=== PATIENT | female | born 1960 | race Caucasian/White ===

== ENCOUNTER 2016-04-27 21:10 | Emergency (ER) | payer OTHER ==
[2016-04-27 22:06] LABS: MANUAL DIFF NEEDED? NO
[2016-04-27 22:13] LABS: BASO% 1.1 % (0.0-0.8); EOS# 0.15 X1000 (0.0-0.7); EOS% 2.7 % (0.0-10.0); HEMATOCRIT 38.3 % (37.0-47.0); HEMOGLOBIN 12.8 g/dL (12.0-16.0); MCH 27.8 PG (27-31); MCHC 33.4 g/dL (33-37); MCV 83.3 FL (81-99); MONO# 0.46 X1000 (0.11-0.59); MONO% 8.2 % (1.7-9.3); PLT 372 X1000 (130-400)
[2016-04-27] MEDS ORDERED: HUMULIN R IV ONE ×2 (22:14→23:13)
[2016-04-27] MEDS ORDERED: NS 1,000 ML IV ONE (22:14)
--- NOTE | 2016-04-27 22:27 | PROVIDER DOCUMENTATION ---
HPI-General Adult - General Source: patient - History of Present Illness -Gen Adult Nature of Presenting Problems: 55 YOWF PRESENTS TO ED WITH C/O PT [facility]. PT STATES THE CLINIC CALLED HER AND TOLD HER TO COME TO ED THAT HER BLOOD SUGAR WAS 534. PT STATES HER LAST MEAL WAS AT [employer] SHE HAD 4 SLICES OF PIZZA AND SOUP WITH A SPRITE. PT STATES SHE HAS NOT TAKEN HER INSULIN TODAY. Location of Pain/Injury: reports: none Pain Radiation: reports: no radiation Quality of Pain: reports: none Severity: reports: moderate Onset/Duration: reports: 4-6 hours ago Timing: reports: still present Context/Activities at Onset: reports: light activity Modifying Factors: improves with: nothing Similar Symptoms Previously?: No Recently seen or treated by another doctor?: No <Pola Bejarano - Last Filed: 04/27/16 23:00> <Jaime Arnold - Last Filed: 04/28/16 00:59> - General Chief Complaint: High Blood Sugar Stated Complaint: HIGH BLOOD SUGAR Time Seen by Provider: 04/27/16 22:12 Allergies/Adverse Reactions: Patient Allergies Allergy/AdvReac Type Severity Reaction Status Date / Time Sulfa (Sulfonamide Allergy Mild RASH Verified 04/27/16 21:49 Antibiotics) sulfamethoxazole Allergy VOMITING Verified 04/27/16 21:49 [From Bactrim] trimethoprim [From Bactrim] Allergy VOMITING Verified 04/27/16 21:49 Home Medications: Home Medication List Medication Instructions Recorded Confirmed Last Taken Type Rosuvastatin Calcium [Crestor] 30 mg PO DAILY 06/23/13 06/22/15 06/08/15 09:00 History Losartan/Hydrochlorothiazide 1 each PO DAILY 09/04/14 06/22/15 06/08/15 09:00 History [Losartan-Hctz 50-12.5 mg Tab] Paroxetine HCl [Paxil] 20 mg PO DAILY 09/04/14 06/22/15 06/08/15 09:00 History Insulin Novolog 70/30 [Novolog Mix 45 unit SUBQ QAM #0 insuln.pen 09/29/1406/2106/08/15 09:00 Rx 70/30] Hydrochlorothiazide 12.5 mg PO DAILY 05/17/15 06/22/15 06/02/15 History Insulin Regular, Human [Humulin R 20 unit SQ TID 05/17/15 06/22/15 06/08/15 09: 00 History U-500] Meloxicam 7.5 mg PO DAILY 05/17/15 06/22/15 06/02/15 History Hydrocodone/Acetaminophen [[place] 1 each PO Q4H PRN PRN #0 tablet 06/07/15 Unknown Rx 5-325 Tablet] Methocarbamol [Robaxin-750] 750 mg PO 3-4XDAY PRN #30 tablet 06/18/15 06/22/15 Unknown Rx Tramadol [Ultram] 50 mg PO Q6H PRN PRN #30 tablet 06/18/15 06/22/15 Unknown Rx Cyclobenzaprine [Flexeril] 10 mg PO TID PRN #10 tablet 06/22/15 Unknown Rx Hydrocodone/Acetaminophen [[place] 1 each PO Q4-6H PRN PRN #12 tablet 06/22/15 Unknown Rx 5-325 Tablet] Ciprofloxacin HCl [Cipro] 500 mg PO BID #14 tablet 04/27/16 Unknown Rx Review of Systems - Adult - REVIEW OF SYSTEMS - ADULT Constitutional: denies: chills, fever Eyes: reports: no symptoms reported Ears, Nose, Mouth & Throat: reports: no symptoms reported Cardiovascular: denies: chest pain, palpitations, syncope Respiratory: denies: cough, shortness of breath, wheezing Gastrointestinal: denies: abdominal pain, diarrhea, nausea, vomiting Genitourinary: reports: no symptoms reported Musculoskeletal: denies: back pain, neck pain Integumentary: reports: no symptoms reported Neurological: denies: dizziness/vertigo, headache/migraines, syncope Psychiatric: reports: no symptoms reported Endocrine: reports: no symptoms reported Hematologic/Lymphatic: reports: no symptoms reported Allergic/Immunologic: reports: no symptoms reported All Other Systems: Reviewed and Negative <Pola Bejarano - Last Filed: 04/27/16 23:00> Past History - Adult - PAST MEDICAL HISTORY-ADULT Review of Records: reports: Nursing Assessment Review, Medications Reviewed Cardiovascular: reports: HTN, hyperlipidemia Gastrointestinal: reports: other (hernia) Musculoskeletal: reports: chronic pain Psychiatric: reports: anxiety, depression Endocrine/Immune: reports: Diabetes - PRIOR SURGERIES/PROCEDURES Surgical/Procedure History: reports: hernia repair, other (stomach stappled) - PRIOR HOSPITALIZATIONS Prior Hospitalizations: reports: for other non-related - IMMUNIZATION STATUS Childhood Immunizations: See Nurse Assessment Flu Vaccine: See Nurse Assessment - FAMILY HISTORY Family History: reviewed, not pertinent - SOCIAL HISTORY Smoking: denies Substance Use: denies Alcohol Use Frequency: never Living Situation: family <Pola Bejarano - Last Filed: 04/27/16 23:00> Physical Exam-General - PHYSICAL EXAM-ADULT Initial Vital Signs Reviewed: Yes - CONSTITUTIONAL General Appearance: alert, mild distress - EYES Eyes: PERRL/EOMI, pink conjunctivae - HEAD, EARS, NOSE, MOUTH & THROAT HENMT: normocephalic/atraumatic, moist mucous membranes - NECK Neck: non-tender, full range of motion, supple - RESPIRATORY Respiratory: chest non-tender, lungs clear, normal breath sounds - CARDIOVASCULAR Cardiovascular: normal peripheral pulses, regular rate, rhythm - GASTROINTESTINAL (ABDOMEN) Abdominal Exam: normal bowel sounds, non tender, soft - LYMPHATIC Lymphatic: no adenopathy - MUSCULOSKELETAL Back Exam: normal inspection, no CVA tenderness, no vertebral tenderness Extremity: normal range of motion, non-tender - SKIN Integumentary: normal color, normal turgor, warm/dry - NEUROLOGIC Neurologic: grossly normal - PSYCHIATRIC Psych/Mental Status: oriented x 3 <Pola Bejarano - Last Filed: 04/27/16 23:00> Progress - PLAN OF CARE/RESULTS Progress/Plan/Lab Results: Laboratory Tests 04/27/16 04/27/16 04/27/16 21:58 21:58 21:58 WBC 5.63 RBC 4.60 Hgb 12.8 Hct 38.3 MCV 83.3 MCH 27.8 MCHC 33.4 RDW Std Deviation 14.4 Plt Count 372 MPV 9.0 Immature Gran % (Auto) 0.0 Neut % (Auto) 56.0 Lymph % (Auto) 32.0 [place] % (Auto) 8.2 Eos % (Auto) 2.7 Baso % (Auto) 1.1 H Immature Gran # (Auto) 0.00 Neut # (Auto) 3.16 Lymph # (Auto) 1.80 [place] # (Auto) 0.46 Eos # (Auto) 0.15 Baso # (Auto) 0.06 Sodium 131 L Potassium 3.9 Chloride 90 L Carbon Dioxide 25 Anion Gap 16 BUN 29 H Creatinine 1.0 H Estimated GFR/1.73 m2 57 BUN/Creatinine Ratio 29 Glucose 510 H* Calculated Osmolality 291 Calcium 9.9 Total Bilirubin 0.27 AST 13 ALT 11 Alkaline Phosphatase 111 H Total Protein 7.0 Albumin 3.7 Globulin 3.3 Albumin/Globulin Ratio 1.1 Urine Source Urine Color Urine Turbidity Urine pH Ur Specific [place] Urine Protein Ur Glucose (Stick) Ur Ketones (Stick) Urine Blood Urine Nitrite Urine Bilirubin Urobilinogen Dipstick Urine Leukocytes Urine WBC (Auto) Urine RBC (Auto) U Epithel Cells (Auto) Urine Bacteria (Auto) Acetone Level NEGATIVE 04/27/16 22:43 WBC RBC Hgb Hct MCV MCH MCHC RDW Std Deviation Plt Count MPV Immature Gran % (Auto) Neut % (Auto) Lymph % (Auto) [place] % (Auto) Eos % (Auto) Baso % (Auto) Immature Gran # (Auto) Neut # (Auto) Lymph # (Auto) [place] # (Auto) Eos # (Auto) Baso # (Auto) Sodium Potassium Chloride Carbon Dioxide Anion Gap BUN Creatinine Estimated GFR/1.73 m2 BUN/Creatinine Ratio Glucose Calculated Osmolality Calcium Total Bilirubin AST ALT Alkaline Phosphatase Total Protein Albumin Globulin Albumin/Globulin Ratio Urine Source CLEAN CATCH Urine Color STRAW Urine Turbidity CLEAR Urine pH 5.5 Ur Specific [place] 1.022 Urine Protein NEGATIVE Ur Glucose (Stick) >1000 A Ur Ketones (Stick) NEGATIVE Urine Blood SMALL A Urine Nitrite NEGATIVE Urine Bilirubin NEGATIVE Urobilinogen Dipstick NORMAL Urine Leukocytes LARGE A Urine WBC (Auto) 10-20 A Urine RBC (Auto) <10 U Epithel Cells (Auto) <10 Urine Bacteria (Auto) NEGATIVE Acetone Level Orders Category Date Time Status Finger Stick Blood Sugar (ED) DIRECTED Care 04/27/16 22:14 Active CBC WITH ELECTRONIC DIFF [HEME] Stat Lab 04/27/16 21:58 Completed CMP [COMPREHENSIVE METABOLIC PANEL] [CHEM] Stat Lab 04/27/16 21:58 Completed Ketone [ACETONE SERUM] [CHEM] Stat Lab 04/27/16 21:58 Completed URINALYSIS [URINALYSIS] Stat Lab 04/27/16 22:43 Completed 0.9% Sodium Chloride Inj [Ns] 1,000 ml Med 04/27/16 22:14 Active IV 999 mls/hr Insulin Human Regular [Humulin R] Med 04/27/16 22:14 Discontinued 15 unit IV NOW ONE Vital Signs - 24 hr 04/27/16 21:24 Temperature 98.4 F Pulse Rate 81 Respiratory 18 Rate Blood Pressure 118/64 O2 Sat by Pulse 98 Oximetry <Pola Bejarano - Last Filed: 04/27/16 23:00> Departure <Pola Bejarano - Last Filed: 04/27/16 23:00> - Departure Time of Disposition Order: 00:59 Certified Medical Emergency: Emergent <Jaime Arnold - Last Filed: 04/28/16 00:59> - Departure DIAGNOSIS: Hyperglycemia without ketosis, UTI (urinary tract infection) Disposition: HOME 01 Condition: Stable Additional Instructions: ED Follow Up Instructions: You have been treated by a care provider in the Emergency Department. These instructions are being provided to you so you can have an understanding of how to care for yourself upon discharge. Upon discharge from the Emergency Department, you are responsible for making arrangements for follow-up care by a physician of your choice. Take all prescribed medications as directed. Return to the Emergency Department immediately for any new or worsening symptoms. You may call the Physician Referral phone number at [phone] to obtain a list of Physicians who are taking new patients. Prescriptions: Ciprofloxacin HCl [Cipro] 500 mg PO BID #14 tablet [facility]errals: [facility] [Primary Care Provider] - Instructions: Urinary Tract Infection, [id number], Hyperglycemia, Easy-to- Read Attestation - Scribe Verification/Attestation Scribe:: Pola Bejarano Acting as Scribe for:: Jaime Arnold Scribe documention review:: This chart was documented by a scribe and accurately reflects the service the provider performed and the decisions made by the provider. <Pola Bejarano - Last Filed: 04/27/16 23:00> Physician Attestation
[2016-04-27 22:42] LABS: ALBUMIN 3.7 g/dL (3.5-5.0); CALCIUM 9.9 mg/dL (8.8-10.2); POTASSIUM 3.9 mmol/L (3.5-5.1); TOTAL BILIRUBIN 0.27 mg/dL (0.20-1.00)
[2016-04-27 22:53] LABS: URINE MICRO REVIEW NEEDED? NO; URINE SOURCE CLEAN CATCH
[2016-04-27 22:56] LABS: BILIRUBIN URINE NEGATIVE (NEGATIVE); BLOOD URINE SMALL (NEGATIVE); COLOR STRAW; GLUCOSE URINE >1000 mg/dL (NEGATIVE); LEUKOCYTES URINE LARGE (NEGATIVE); NITRITE URINE NEGATIVE (NEGATIVE); PH URINE 5.5; PROTEIN URINE NEGATIVE (NEGATIVE); SP GRAVITY URINE 1.022; TURBIDITY URINE CLEAR (CLEAR); UROBILINOGEN URINE NORMAL (NORMAL)
[2016-04-27 22:57] LABS: UR EPITHELIAL CELLS <10 /HPF (<10); URINE BACTERIA NEGATIVE /HPF; URINE RBC <10 /HPF (<10)
[2016-04-27] MEDS ORDERED: ROCEPHIN 1 GM/NS 50 ML IV ONE (23:13)
[2016-04-27 23:56] VITALS: BP 125/65
[2016-04-27] MEDS ORDERED: TUMS PO ONE (23:59)
== END 2016-04-28 00:34 | disposition home or self-care (01) ==
LOC: ED 21:10
DX: E11.65 Type 2 diabetes mellitus with hyperglycemia (principal); N39.0 Urinary tract infection, site not specified; I10 Essential (primary) hypertension; E78.5 Hyperlipidemia, unspecified; G89.29 Other chronic pain; F41.9 Anxiety disorder, unspecified; F32.9 Major depressive disorder, single episode, unspecified; Z79.4 Long term (current) use of insulin; Z79.899 Other long term (current) drug therapy
CPT/HCPCS: 80053; 81001; 82009; 82948; 85025; 96365; J0696; J7030

== ENCOUNTER 2018-06-15 21:40 | Inpatient (IN) ==
[2018-06-15 22:25] LABS: URINE SOURCE CLEAN CATCH
[2018-06-16 00:05] LABS: BILIRUBIN URINE NEGATIVE (NEGATIVE); BLOOD URINE NEGATIVE (NEGATIVE); COLOR STRAW; GLUCOSE URINE >1000 mg/dL (NEGATIVE); KETONE URINE NEGATIVE (NEGATIVE); LEUKOCYTES URINE SMALL (NEGATIVE); NITRITE URINE NEGATIVE (NEGATIVE); PH URINE 5.5; PROTEIN URINE NEGATIVE (NEGATIVE); TURBIDITY URINE CLEAR (CLEAR); UR EPITHELIAL CELLS <10 /HPF (<10); URINE BACTERIA NEGATIVE /HPF; URINE RBC <10 /HPF (<10); URINE WBC <10 /HPF (<10); UROBILINOGEN URINE NORMAL (NORMAL)
[2018-06-16 05:30] LABS: BASO# 0.03 X1000 (0.0-0.2); BASO% 0.4 % (0.0-0.8); EOS# 0.14 X1000 (0.0-0.7); HEMOGLOBIN 14.8 g/dL (12.0-16.0); LYMPH# 1.37 X1000 (1.2-3.4); LYMPH% 19.8 % (20.5-51.1); MCH 27.6 PG (27-31); MCHC 33.6 g/dL (33-37); MCV 81.9 FL (81-99); MONO# 0.36 X1000 (0.11-0.59); MONO% 5.2 % (1.7-9.3); MPV 8.7 FL (7.4-10.4); NEUT# 5.03 X1000 (1.4-6.5); NEUT% 72.6 % (42.2-75.2); PLT 335 X1000 (130-400); RBC 5.37 XMIL (4.2-5.4); RDW 13.3 % (11.5-14.5); WBC 6.93 X1000 (4.8-10.8)
--- NOTE | 2018-06-16 06:01 | PROVIDER DOCUMENTATION ---
HPI-Abdominal Pain/GI Problem - General Chief Complaint: Constipation Stated Complaint: CONSTIPATED, KIDNEY ISSUES Time Seen by Provider: 06/16/18 03:49 Source: patient Allergies/Adverse Reactions: Patient Allergies Allergy/AdvReac Type Severity Reaction Status Date / Time Sulfa (Sulfonamide Allergy Mild RASH Verified 06/16/18 05:26 Antibiotics) sulfamethoxazole Allergy VOMITING Verified 06/16/18 05:26 [From Bactrim] trimethoprim [From Bactrim] Allergy VOMITING Verified 06/16/18 05:26 Home Medications: Home Medication List Medication Instructions Recorded Confirmed Last Taken Type Rosuvastatin Calcium [Crestor] 30 mg PO DAILY 06/23/13 06/22/15 06/08/15 09:00 History Losartan/Hydrochlorothiazide 1 each PO DAILY 09/04/14 06/22/15 06/08/15 09:00 History [Losartan-Hctz 50-12.5 mg Tab] Paroxetine HCl [Paxil] 20 mg PO DAILY 09/04/14 06/22/15 06/08/15 09:00 History Insulin Novolog 70/30 [Novolog Mix 45 unit SUBQ QAM #0 insuln.pen 09/29/14 06/22/15 06/08/15 09:00 Rx 70/30] Hydrochlorothiazide 12.5 mg PO DAILY 05/17/15 06/22/15 06/02/15 History Insulin Regular, Human [Humulin R 20 unit SQ TID 05/17/15 06/22/15 06/08/15 09:00 History U-500] Meloxicam 7.5 mg PO DAILY 05/17/15 06/22/15 06/02/15 History Hydrocodone/Acetaminophen [[place] 1 each PO Q4H PRN PRN #0 tablet 06/07/15 06/22/15 Unknown Rx 5-325 Tablet] Methocarbamol [Robaxin-750] 750 mg PO 3-4XDAY PRN #30 tablet 06/18/15 06/22/15 Unknown Rx Tramadol [Ultram] 50 mg PO Q6H PRN PRN #30 tablet 06/18/15 06/22/15 Unknown Rx Cyclobenzaprine [Flexeril] 10 mg PO TID PRN #10 tablet 06/22/15 Unknown Rx Hydrocodone/Acetaminophen [[place] 1 each PO Q4-6H PRN PRN #12 tablet 06/22/15 Unknown Rx 5-325 Tablet] Ciprofloxacin HCl [Cipro] 500 mg PO BID #14 tablet 04/27/16 Unknown Rx - History of Present Illness-ABD Nature of Presenting Problems: 57 y/o WF c/o constipation and draining abdo wound for the last 4 months. Pt states that she pulled her abdomen around [place] and has been draining fluid since. She relates that she had hernia surgery with Dr Branch. Abdominal Pain Onset Location: reports: periumbilical Pain Radiation: reports: no radiation Quality of Pain: reports: aching Severity in ED: reports: mild Onset/Duration: reports: other (x4 months) Timing: reports: still present Activities at Onset: reports: light activity Exposure to sick contacts?: No Modifying Factors: improves with: movement, palpation Associated Symptoms: reports: denies symptoms Last BM: 24 hours ago Dark Stools Present?: reports: none noticed Rectal Bleeding: reports: none Rectal Pain: reports: none # of Vomiting Episodes: 0 Emesis Description: reports: none Bruising or Bleeding Gums?: No Similar Symptoms Previously?: No Recently seen or treated by another doctor?: No Review of Systems - Adult - REVIEW OF SYSTEMS - ADULT Constitutional: reports: no symptoms reported, see HPI Eyes: reports: no symptoms reported, see HPI Ears, Nose, Mouth & Throat: reports: no symptoms reported, see HPI Cardiovascular: reports: no symptoms reported, see HPI Respiratory: reports: no symptoms reported, see HPI Gastrointestinal: reports: see HPI, abdominal pain Genitourinary: reports: no symptoms reported, see HPI Musculoskeletal: reports: no symptoms reported, see HPI Integumentary: reports: no symptoms reported, see HPI Neurological: reports: no symptoms reported, see HPI Psychiatric: reports: no symptoms reported, see HPI Endocrine: reports: no symptoms reported, see HPI Hematologic/Lymphatic: reports: no symptoms reported, see HPI Allergic/Immunologic: reports: no symptoms reported, see HPI All Other Systems: Reviewed and Negative Past History - Adult - PAST MEDICAL HISTORY-ADULT Review of Records: reports: Nursing Assessment Review, Medications Reviewed, Social history reviewed & non-contributory. Major Childhood Illnesses: reports: denies history Cardiovascular: reports: HTN, hyperlipidemia Respiratory: reports: denies history Gastrointestinal: reports: other (hernia) Obstetrical/Gynecological: reports: denies history Genitourinary: reports: denies history Musculoskeletal: reports: chronic pain Neurological: reports: denies history Psychiatric: reports: anxiety, depression Endocrine/Immune: reports: Diabetes Other Conditions: reports: denies history - PRIOR SURGERIES/PROCEDURES Surgical/Procedure History: reports: hernia repair, other (stomach stappled) - PRIOR HOSPITALIZATIONS Prior Hospitalizations: reports: for other non-related - IMMUNIZATION STATUS Childhood Immunizations: See Nurse Assessment Flu Vaccine: See Nurse Assessment - FAMILY HISTORY Family History: reviewed, not pertinent Physical Exam-General - PHYSICAL EXAM-ADULT Initial Vital Signs Reviewed: Yes - CONSTITUTIONAL General Appearance: appears well, alert, no apparent distress - EYES Eyes: PERRL/EOMI - HEAD, EARS, NOSE, MOUTH & THROAT HENMT: normocephalic/atraumatic, moist mucous membranes - NECK Neck: non-tender, full range of motion, supple, normal inspection - RESPIRATORY Respiratory: chest non-tender, lungs clear, normal breath sounds, no pleuratic chest pain, no respiratory distress, no accessory muscle use - CARDIOVASCULAR Cardiovascular: normal peripheral pulses, regular rate, rhythm, no edema, no gallop, no JVD, no murmur - GASTROINTESTINAL (ABDOMEN) Abdominal Exam: normal bowel sounds, soft, no organomegaly, no pulsatile mass, other (purulent drainage from umbilicus) - LYMPHATIC Lymphatic: no adenopathy - MUSCULOSKELETAL Back Exam: normal inspection, no CVA tenderness, no vertebral tenderness Extremity: normal range of motion, non-tender, normal gait, normal inspection, no pedal edema, no calf tenderness, normal capillary refill - SKIN Integumentary: normal color, normal turgor - NEUROLOGIC Neurologic: parole agent II-XII nml as tested, grossly normal, no motor/sensory deficits - PSYCHIATRIC Psych/Mental Status: normal mood/affect, normal thought content, normal thought process, oriented x 3 Progress - PLAN OF CARE/RESULTS Progress/Plan/Lab Results: Laboratory Results - last 24 hr 06/15/18 06/16/18 22:01 05:20 WBC 6.93 RBC 5.37 Hgb 14.8 Hct 44.0 MCV 81.9 MCH 27.6 MCHC 33.6 RDW Std Deviation 13.3 Plt Count 335 MPV 8.7 Immature Gran % (Auto) 0.0 Neut % (Auto) 72.6 Lymph % (Auto) 19.8 L [place] % (Auto) 5.2 Eos % (Auto) 2.0 Baso % (Auto) 0.4 Immature Gran # (Auto) 0.00 Neut # (Auto) 5.03 Lymph # (Auto) 1.37 [place] # (Auto) 0.36 Eos # (Auto) 0.14 Baso # (Auto) 0.03 Urine Source CLEAN CATCH Urine Color STRAW Urine Turbidity CLEAR Urine pH 5.5 Ur Specific [place] 1.010 Urine Protein NEGATIVE Ur Glucose (Stick) >1000 A Ur Ketones (Stick) NEGATIVE Urine Blood NEGATIVE Urine Nitrite NEGATIVE Urine Bilirubin NEGATIVE Urobilinogen Dipstick NORMAL Urine Leukocytes SMALL A Urine WBC (Auto) <10 Urine RBC (Auto) <10 U Epithel Cells (Auto) <10 Urine Bacteria (Auto) NEGATIVE Orders Category Date Time Status CT ABDOMEN/PELVIS W/O CONTRAST [CT] Stat Exams 06/16/18 03:49 Taken CBC WITH ELECTRONIC DIFF [HEME] Stat Lab 06/16/18 05:20 Completed COMPREHENSIVE METABOLIC PANEL [CHEM] Stat Lab 06/16/18 05:20 Received LACTATE, PLASMA [CHEM] Stat Lab 06/16/18 05:20 Received UA NIMS W/REFLEX CULT [URINALYSIS] Stat Lab 06/15/18 22:01 Completed URINE CULTURE [RM] Routine Lab 06/16/18 00:55 Received Result Diagrams: 06/16/18 05:20 - CONSULTS/PCP/HOSPITALIST Notification #1 *Consult/PCP/Hospitalist*: Dr Talbot Time Discussed: 06:09 Reason/Comments: asked for ABX and admit Consult Disposition: Will see in ED, Admit Departure - Departure Date of Disposition Decision: 06/16/18 Time of Disposition Decision: 06:10 DIAGNOSIS: Abdominal wall abscess at site of surgical wound, Nephrolithiasis Disposition: ADMITTED INPATIENT 09 Certified Medical Emergency: Emergent Condition: Fair Referrals and Follow-Ups: None,PCP [Primary Care Provider] - - Critical Care Note This patient required my direct & personal management of CC.: No Attestation - Physician/ ROGELIO Attestation Patient care was provided by Advanced Practice Provider:: No The physician spent face to face time with patient:: Yes Advanced Practice Provider documentation review:: Supervising physician onsite and consulted in the evaluation and care of this patient. The physician did have a face to face encounter with the patient.
[2018-06-16 06:08] LABS: AGAP 14; ALB/GLOB RATIO 1.1; ALKALINE PHOSPHATASE 136 U/L (32-104); BUN 21 mg/dL (8-22); CALCIUM 9.6 mg/dL (8.8-10.2); CHLORIDE 95 mmol/L (98-107); COSMO 282; CREATININE 0.9 mg/dL (0.5-0.9); ESTIMATED GFR > 60; GLUCOSE 392 mg/dL (70-104); GOT 12 U/L (10-30); GPT 13 U/L (10-36); POTASSIUM 4.2 mmol/L (3.5-5.1); SODIUM 131 mmol/L (136-145); TCO2 22 mmol/L (25-35); TOTAL BILIRUBIN 0.28 mg/dL (0.20-1.00); TOTAL PROTEIN 7.8 g/dL (6.3-8.3)
[2018-06-16] MEDS ORDERED: ZOSYN 3.375 GM in NS 50 ML IV ONE (06:11)
[2018-06-16] MEDS ORDERED: NS 1,000 ML IV ONE (06:14)
[2018-06-16] MEDS ORDERED: HUMULIN R IV ONE (06:14)
[2018-06-16 06:45] LABS: INR 0.9; PROTIME 12.9 Seconds (11.0-16.0); PTT 28.6 Seconds (22.3-41.8)
--- NOTE | 2018-06-16 08:18 | Diag Imaging Result Doc PS360 ---
EXAM: CT ABDOMEN/PELVIS W/O CONTRAST HISTORY: flank pain TECHNIQUE: CT abdomen and pelvis without contrast COMPARISON: 06/18/2015 FINDINGS: There has been a gastric bypass procedure. No calcified gallstones or adjacent inflammation. No focal hepatic abnormality identified on this noncontrasted exam. Normal spleen, pancreas, and adrenal glands. There is cortical thinning to the left kidney which is more prominent than on the prior study. Likely long-standing left ureteropelvic junction obstruction. There are multiple bilateral nonobstructing renal stones. No hydronephrosis. No aortic aneurysm. No bowel obstruction. No inflammation about the cecum. There is an anterior pelvic wall hernia filled with multiple bowel loops. No wall thickening or distention. The urinary bladder is distended and is normal. Normal uterus. IMPRESSION: 1.Multiple bilateral nonobstructing renal stones. No hydronephrosis. 2.Long-standing left ureteropelvic junction obstruction with worsening cortical thinning 3.Multiple bowel loops within an anterior pelvic wall hernia without obstruction 4.Gastric bypass 5.A preliminary report was given at 5:13 AM This exam was performed using automated exposure control, adjustment of mA or kV according to patient size, and/or use of iterative reconstruction technique. Electronically signed by Nathaniel Og 06/16/2018 8:16 AM
[2018-06-16] MEDS ORDERED: ZOFRAN IV PRN (09:12)
[2018-06-16] MEDS: NS 1,000 ML IV SCH (10:48)
[2018-06-16] MEDS: LOVENOX SUBQ SCH (10:48)
[2018-06-16] MEDS ORDERED: VANCOMYCIN IV PER PHARMACY MISC SCH (15:15)
--- NOTE | 2018-06-16 15:48 | HISTORY AND PHYSICAL ---
DATE: 06/16/2018 HISTORY OF PRESENT ILLNESS: This is a 57-year-old female, a patient of Dr. Murdock. She has had numerous abdominal operations including excision and debridement of necrotizing fascitis of the left lower quadrant. She had, in 2015, a laparoscopic converted to open incisional hernia repair with mesh by Dr. Branch. This was complicated by a postoperative hematoma that he evacuated in 06/09/2015. She has had ongoing issues related to this, wound healing, so forth, but ultimately she got her wound to heal. She has noted over the last couple of days, drainage from her umbilicus area. There are no fevers. No other GI complaints. She came to the ER where a CT scan was obtained that shows recurrent hernia and gastric bypass changes. She denies any nausea or vomiting. MEDICAL HISTORY: Obesity, history of necrotizing fasciitis, hypertension, hyperlipidemia, diabetes, asthma, osteoarthritis, depression, anxiety disorder. SURGICAL HISTORY: Repair of an incarcerated ventral hernia, I and D with prior hernia repair, a bariatric procedure, and debridement of abdominal wall necrotizing fasciitis. SOCIAL HISTORY: No current tobacco, alcohol, or drugs. MEDICATIONS: Negative for anticoagulants. REVIEW OF SYSTEMS: Ten point negative. FAMILY HISTORY: Reviewed and noncontributory. PHYSICAL EXAMINATION: Vital Signs: She is afebrile. Pulse has been in the 90s, blood pressure 175/81, oxygen saturation 97% on room air. General: She is alert. HEENT: There is no scleral icterus. No cervical masses. Cardiovascular: Normal rate. Pulmonary: No increased work of breathing. Abdomen: Soft. It is obese. There is no palpable hernias. There is a sinus tract with serosanguineous, murky fluid draining from this. It is not succus. There is no cellulitis. Her integument otherwise warm and dry. Psychiatric: Appropriate affect. Neurologic: No gross deficits. Peripheral Vascular: Warm and well perfused. No lower extremity edema. LABS: White count 6, hematocrit is 44, platelets 335,000. INR is 0.90. Creatinine 0.9, glucose is up to 392. LFTs are normal with mild elevation in her alkaline phosphatase. Lipase normal. Urinalysis shows small leukocytes. ASSESSMENT AND PLAN: This is a 57-year-old female with apparent possible infection of ventral hernia mesh, a patient of Dr. Figh's. She is hyperglycemic. This has been somewhat of a chronic issue for her. We will admit her. We will start her on antibiotics. Keep her nothing per oral at midnight. I will discuss with Dr. Branch. I have her on a sliding scale insulin, intravenous fluids, Lovenox. We will start her on vancomycin and Zosyn. No acute indication for surgical intervention at this juncture. cc: Pastor Talbot MD
[2018-06-16] MEDS: ZOSYN 3.375 GM in NS 50 ML IV SCH ×2 (15:51→23:51)
[2018-06-16] MEDS ORDERED: VANCOMYCIN 2 GM in NS 500 ML IV ONE (17:00)
[2018-06-16] MEDS: HUMULIN R SUBQ SCH ×2 (17:00→23:48)
[2018-06-16] MEDS: MORPHINE IV PRN ×3 (17:13→23:29)
[2018-06-17] MEDS: NS 1,000 ML IV SCH ×3 (02:29→11:10)
[2018-06-17] MEDS: MORPHINE IV PRN ×5 (02:58→22:33)
[2018-06-17] MEDS: ZOSYN 3.375 GM in NS 50 ML IV SCH ×4 (06:34→23:01)
--- NOTE | 2018-06-17 06:37 | GENERAL SURGERY PROGRESS NOTE ---
DATE: 06/17/2018 SUBJECTIVE: Patient seems to be doing okay. OBJECTIVE: Vital Signs: Patient is currently afebrile. Her vital signs stable. General: No acute distress. HEENT: Normocephalic, atraumatic. Pupils equal, round, reactive to light. Mucous membranes moist. Oropharynx benign. Neck: Supple, trachea midline. Cardiovascular: Regular rate and rhythm. Lungs: Grossly clear. Abdomen: Soft, nondistended, nontender. There is a wound under the umbilicus that is draining; looks more serosanguineous fluid. Extremities: Moves all extremities. Neurologic: Grossly intact. Skin: No signs of jaundice. Vascular: All extremities perfused. LABORATORY: Reviewed from yesterday. ASSESSMENT AND PLAN: A 57-year-old female with a past surgical history of ventral hernia repair now with sinus at her umbilicus. 1. Sinus tract umbilicus. This time is not producing any purulence. There is no skin erythema noted around it. She does not have leukocytosis. We will keep her on the antibiotics right now. We will place Vashe wet-to-dry dressing changes twice a day. We will consult Wound Care. We will put her on a regular diet. No immediate plans for surgical intervention. She would be a difficult case to manage, so we will try to manage her nonoperatively with Wound Care. cc: MD Pastor Styles MD [facility]
[2018-06-17 07:40] LABS: HEMATOCRIT 41.9 % (37.0-47.0); HEMOGLOBIN 13.6 g/dL (12.0-16.0); MCH 27.6 PG (27-31); MCHC 32.5 g/dL (33-37); MCV 85.2 FL (81-99); MPV 8.8 FL (7.4-10.4); RBC 4.92 XMIL (4.2-5.4); RDW 13.4 % (11.5-14.5); WBC 5.12 X1000 (4.8-10.8)
[2018-06-17 07:59] LABS: AGAP 14; BUN 10 mg/dL (8-22); CALCIUM 9.2 mg/dL (8.8-10.2); CHLORIDE 102 mmol/L (98-107); COSMO 283; CREATININE 0.7 mg/dL (0.5-0.9); ESTIMATED GFR > 60; GLUCOSE 247 mg/dL (70-104); POTASSIUM 3.9 mmol/L (3.5-5.1); SODIUM 138 mmol/L (136-145); TCO2 22 mmol/L (25-35)
[2018-06-17] MEDS: HUMULIN R SUBQ SCH ×3 (08:07→23:01)
[2018-06-17] MEDS: PRILOSEC PO SCH (08:34)
[2018-06-17] MEDS: LOVENOX SUBQ SCH (08:34)
--- NOTE | 2018-06-17 08:34 | EKG Report ---
Test Performed on : 06/16/2018 08:19:46 AM Test Reason : surgical clearance Blood Pressure : / mmHG Vent. Rate : 092 BPM Atrial Rate : 092 BPM P-R Int : 140 ms QRS Dur : 090 ms QT Int : 364 ms P-R-T Axes : 051 -09 054 degrees QTc Int : 450 ms Normal sinus rhythm. Minimal voltage criteria for LVH, may be normal variant Borderline ECG When compared with ECG of 03-JUN-2015 19:26, Nonspecific T wave abnormality now evident in Inferior leads Confirmed by Zaria FINLEY, Papito ([id number]) on 06/17/2018 9:18:34 AM
[2018-06-17] MEDS: VANCOMYCIN 1,700 MG in NS 250 ML IV SCH (18:08)
[2018-06-17] MEDS ORDERED: DIFLUCAN PO ONE (21:09)
[2018-06-18] MEDS: MORPHINE IV PRN ×6 (00:53→20:31)
[2018-06-18] MEDS: ZOSYN 3.375 GM in NS 50 ML IV SCH ×3 (05:20→20:31)
[2018-06-18] MEDS: NS 1,000 ML IV SCH ×3 (06:32→23:30)
--- NOTE | 2018-06-18 06:49 | GENERAL SURGERY PROGRESS NOTE ---
DATE: 06/18/2018 SUBJECTIVE: Patient seems to be doing okay. OBJECTIVE: Vital Signs: Patient is currently afebrile. Her vital signs stable. General: No acute distress. HEENT: Normocephalic, atraumatic. Pupils equal, round, reactive to light. Mucous membranes moist. Oropharynx benign. Neck: Supple, trachea midline. Cardiovascular: Regular rate and rhythm. Lungs: Grossly clear. Abdomen: Soft, nontender. Wound with dressing intact. No significant change. Extremities: Moves all extremities. Neurologic: Grossly intact. Skin: No signs of jaundice. Vascular: All extremities perfused. LABORATORY: Reviewed from yesterday. White blood cell count is normal. Remainder of labs including electrolytes appeared to be improving. ASSESSMENT AND PLAN: A 57-year-old female with sinus tract at her umbilicus. 1. Sinus tract. At this time continue local wound care. To do anything surgically would be high risk for her as a high morbidity. We will try to address this with local wound care. The goal would be to try to discharge her here in the next 24 hours with follow-up [facility]. cc: MD Pastor Styles MD
[2018-06-18] MEDS: HUMULIN R SUBQ SCH ×4 (07:08→20:31)
[2018-06-18] MEDS: LOVENOX SUBQ SCH (09:57)
[2018-06-18] MEDS: PRILOSEC PO SCH (09:57)
[2018-06-18] MEDS: VANCOMYCIN 1,700 MG in NS 250 ML IV SCH (16:28)
[2018-06-18] MEDS: COLACE PO SCH (20:30)
[2018-06-19] MEDS: MORPHINE IV PRN ×2 (02:00→04:03)
[2018-06-19] MEDS: ZOSYN 3.375 GM in NS 50 ML IV SCH ×2 (02:00→07:53)
[2018-06-19 05:22] VITALS: BP 145/77
[2018-06-19] MEDS: HUMULIN R SUBQ SCH (06:43)
--- NOTE | 2018-06-19 07:15 | GENERAL SURGERY PROGRESS NOTE ---
DATE: 06/19/2018 The patient seems to be doing well. Wound seems to be improving. We will plan on discharge today. She has been hemodynamically stable. No other issues. cc: MD Pastor Styles MD
[2018-06-19] MEDS: PRILOSEC PO SCH (07:53)
[2018-06-19] MEDS: LOVENOX SUBQ SCH (07:53)
[2018-06-19] MEDS: COLACE PO SCH (07:53)
--- NOTE | 2018-06-19 09:10 | DISCHARGE SUMMARY ---
ADMISSION DATE: 06/16/2018 DISCHARGE DATE: 06/19/2018 ADMITTING DIAGNOSIS: Sinus tracts on the abdomen. DISCHARGE DIAGNOSIS: Sinus tracts on the abdomen. ADMITTING PHYSICIAN: Dr. Oseas Branch. CONSULTATIONS: None. PROCEDURES: None. BRIEF HISTORY AND COURSE OF STAY: A 57-year-old female well known to me who has had previous wound care follow-up for hematoma from an incisional hernia repair that was done almost 2 or 3 years ago. She now developed a sinus tract that was not draining any purulence. She came to the hospital, and was admitted. She was started on local wound care with vashe, and the wound seemed to improve. She had a CT scan that did not seem to suggest it was connected to any kind of piece of bowel to suggest a fistula. There was no succus draining from it. Once we get the wound cleaned up, it was felt that on 06/19/2018 that it is safe for her to be discharged. All arrangements were made. DISPOSITION: Home. DISCHARGE CONDITION: Stable. FOLLOW-UP: Patient told to follow up with me in the [facility] next . cc: MD Pastor Styles MD MTDD
== END 2018-06-19 09:34 | disposition home or self-care (01) | DRG 395 ==
LOC: ED 21:40 → 4N 06-16 06:46 → SUATTDRO 06-16 06:46
PROVIDERS: ADMIT Surgery; ATTEND Surgery
CPT/HCPCS: 74176; 80048; 80053; 81001; 82948; 83605; 85025; 85027; 85610; 85730; 87040; 87088; 93005; 93010; 96361; 96374; 99285; A9270; J1650; J2270; J2405; J2543; J3370; J7030; J7040; J7050; XXXXX